=== PATIENT | male | born 1960 | race Caucasian/White ===

== ENCOUNTER 2023-03-21 07:51 | Day surgery (SDC) | payer OTHER, SELFPAY ==
[2023-03-21 08:14] VITALS: BMI 36.5
[2023-03-21 08:23] LABS: Glucometer 132 mg/dL (74-106)
[2023-03-21] MEDS: LACTATED RINGER'S SOLUTION 1,000 ML 50 ML IV (08:27)
--- NOTE | 2023-03-21 09:02 | PM.GSPRC ---
Date of procedure: 03/21/23 Indications for Procedure: history of colon polyps Pre-op diagnosis: history of colon polyps Post-op diagnosis: other (normal colon) Procedure: Colonoscopy Anesthesia: MAC Surgeon: [place] Procedure Summary: PROCEDURE: The patient was taken to the Endoscopy Suite, placed in the left lateral recumbent position, given IV sedation as above. A rectal digital exam was performed. prostate was smooth nonenlarged without any palpable nodules. The sphincter tone was found to be normal. No rectal masses were appreciated. The Olympus video colonoscope was advanced under direct visualization to the rectum, sigmoid colon, descending colon, transverse colon and ascending colon to the ileocecal valve. appendiceal lumen was visualized. The underside of the valve was seen. The scope was slowly withdrawn with air being desufflated as it was withdrawn. No gross tumors, polyps or diverticula were seen. The patient tolerated the procedure well and went to the Recovery Area in satisfactory condition. I recommend the patient have repeat screening colonoscopy in ten years unless there are problems. Estimated blood loss (mL): 0 Complications: No Pathology: none sent Condition: stable Disposition: PACU
[2023-03-21 09:51] VITALS: BP 106/65; PULSE 81; RESP 16; O2SAT 96
[2023-03-21 10:03] VITALS: BP 108/67; PULSE 66; RESP 16; O2SAT 98
[2023-03-21 10:20] VITALS: BP 116/75; PULSE 62; RESP 16; O2SAT 99
== END 2023-03-21 10:15 | disposition home or self-care (01) ==
PROVIDERS: Visit Provider Surgery
PROC: (CPT 45378; principal; 2023-03-21 08:50)
DX: Z86.010 Personal history of colon polyps (principal); Z86.73 Personal history of transient ischemic attack (TIA), and cerebral infarction without residual deficits; Z79.82 Long term (current) use of aspirin; Z79.01 Long term (current) use of anticoagulants; Z86.718 Personal history of other venous thrombosis and embolism; Z95.818 Presence of other cardiac implants and grafts; E11.9 Type 2 diabetes mellitus without complications; E78.00 Pure hypercholesterolemia, unspecified; I10 Essential (primary) hypertension; G57.30 Lesion of lateral popliteal nerve, unspecified lower limb; Z79.84 Long term (current) use of oral hypoglycemic drugs
CPT/HCPCS: 45378; 36415; 82948; J2704